=== PATIENT | female | born 1980 ===

== ENCOUNTER 2024-02-19 05:28 | Inpatient (IN) | payer OTHER ==
[2024-02-12 10:27] LABS: PH,URINE 7.5 (5.0-8.0); URINE APPEARANCE Clear; URINE BILIRRUBIN Negative (NEGATIVE); URINE BLOOD Negative; URINE COLOR Yellow; URINE GLUCOSE Negative (NEGATIVE); URINE KETONE Negative (NEGATIVE); URINE LEUKOCYTE Negative; URINE NITRATE Negative; URINE PROTEIN Negative (NEGATIVE); URINE UROBILINOGEN 0.2 E.U./dl
[2024-02-12 10:30] LABS: HEMOGLOBIN 12.8 g/dL (12.0-15.00); MEAN CELL VOLUME 87.2 fL (80.00-100.00); MEAN CORPUSCULAR HEMOGLOBIN 29.4 pg (27.00-32.0); MEAN CORPUSCULAR HGB CONC 33.7 g/dl (32.0-36.0); PLATELET COUNT 262 K/uL (150-450); RED BLOOD COUNT 4.35 M/uL (4.00-6.00); RED CELL DISTRIBUTION WIDTH 14.5 % (11.5-14.5)
[2024-02-12 10:31] LABS: URINE BACTERIA 197.7 uL (0.0-1933); URINE RBC 11.4 uL (0.0-20.8); URINE WBC 3.7 uL (0.0-23.2)
[2024-02-12 11:20] LABS: ALBUMIN 3.9 gm/dL (3.4-5.0); BILIRUBIN TOTAL 0.5 mg/dL (0.3-1.2); CALCIUM 9.1 mg/dL (8.5-10.1); CREATININE SERUM 0.5 mg/dL (0.55-1.02); GFR 133.42; GLOBULINA 3.3 G/DL (2.4-3.5); POTASSIUM 4.12 mEq/L (3.5-5.1); TOTAL PROTEIN 7.2 gm/dL (6.4-8.2)
[2024-02-12 12:02] LABS: INR 0.95; PARTIAL THROMBOPLASTIN TIME 25.1 SECONDS (22.0-34.0); PROTHROMBIN TIME 9.9 SECONDS (9.0-11.5)
[~2024-02-19] VITALS: Ht 213.4 cm; Wt 69.4 kg
[~2024-02-19 05:28] MED LIST: CRESTOR 5MG; PROTONIX40 MG
[2024-02-19] MEDS ORDERED: CEFTRIAXONE SODIUM 2,000 MG VIAL IV ONE (09:45)
[2024-02-19] MEDS ORDERED: BUPIVACAINE HCL 30 ML VIAL IJ ONE (09:45)
[2024-02-19] MEDS ORDERED: POVIDONE-IODINE 118 ML BOTT TOP ONE (09:45)
[2024-02-19] MEDS ORDERED: DIBUCAINE 30 GM TUBE RECTAL ONE (09:45)
[2024-02-19] MEDS ORDERED: HEMOSTATIC MATRIX 1 KIT KIT TOP ONE (09:45)
[2024-02-19] MEDS ORDERED: LIDOCAINE HCL 1%/EPINEPHRINE 20ML VIAL IJ ONE (09:45)
[2024-02-19] MEDS ORDERED: METRONIDAZOLE/SODIUM CHLORIDE 500 MG/100 ML PIGGYBACK IV ONE (09:45)
[2024-02-19] MEDS ORDERED: RINGERS SOLUTION,LACTATED 1,000 ML IV SCH (11:15)
[2024-02-19] MEDS ORDERED: MORPHINE SULFATE 4 MG/ML CARTRIDGE IV PRN (11:15)
[2024-02-19] MEDS ORDERED: ONDANSETRON HCL 2 MG/ML VIAL IV PRN (11:15)
[2024-02-19] MEDS ORDERED: OxyCODONE HCL 5 MG TABLET (ROXICODONE) PO PRN (11:15)
[2024-02-19] MEDS ORDERED: KETOROLAC TROMETHAMINE 30 MG VIAL IV SCH (12:00)
[2024-02-19] MEDS ORDERED: HYOSCYAMINE SULFATE 0.125 MG TAB.SUBL SL SCH (13:00)
[2024-02-19] MEDS ORDERED: ACETAMINOPHEN 500 MG GEL..CAP PO SCH (14:00)
[2024-02-19 15:44] LABS: HEMATOCRIT 37.3 % (36.0-45.00); HEMOGLOBIN 12.3 g/dL (12.0-15.00); MEAN CELL VOLUME 87.8 fL (80.00-100.00); PLATELET COUNT 247 K/uL (150-450); RED BLOOD COUNT 4.25 M/uL (4.00-6.00); RED CELL DISTRIBUTION WIDTH 13.9 % (11.5-14.5)
[2024-02-19 16:57] VITALS: BP 123/60; O2SAT 99
[2024-02-19] MEDS ORDERED: GABAPENTIN 300 MG CAPSULE PO SCH (17:00)
[2024-02-19] MEDS ORDERED: METOCLOPRAMIDE HCL 5 MG/ML VIAL IV SCH (17:00)
[2024-02-19] MEDS ORDERED: METRONIDAZOLE/SODIUM CHLORIDE 100 ML IV SCH (17:00)
[2024-02-19] MEDS ORDERED: CIPROFLOXACIN IN 5 % DEXTROSE 200 MG/100 ML PIGGYBAG IV SCH (21:00)
[2024-02-19] MEDS ORDERED: FAMOTIDINE/PF 20 MG/2 ML VIAL IV PUSH SCH (21:00)
[2024-02-20 00:20] VITALS: BP 93/52; O2SAT 95
[2024-02-20 07:12] LABS: HEMATOCRIT 35.4 % (36.0-45.00); HEMOGLOBIN 11.8 g/dL (12.0-15.00); MEAN CELL VOLUME 88.2 fL (80.00-100.00); MEAN CORPUSCULAR HEMOGLOBIN 29.3 pg (27.00-32.0); MEAN CORPUSCULAR HGB CONC 33.2 g/dl (32.0-36.0); PLATELET COUNT 232 K/uL (150-450); RED BLOOD COUNT 4.01 M/uL (4.00-6.00); RED CELL DISTRIBUTION WIDTH 14.1 % (11.5-14.5)
[2024-02-20 07:39] LABS: CALCIUM 8.1 mg/dL (8.5-10.1); CREATININE SERUM 0.46 mg/dL (0.55-1.02); GFR 146.9; MAGNESIUM 2.1 mg/dL (1.8-2.4); PHOSPHOROUS 2.9 mg/dL (2.5-4.9); POTASSIUM 3.91 mEq/L (3.5-5.1)
[2024-02-20 08:00] VITALS: BP 104/58; O2SAT 100
[2024-02-20] MEDS ORDERED: LACTOBACILLUS ACIDOPHILUS 1 CAP CAP PO SCH (09:00)
[2024-02-20 16:34] VITALS: BP 100/53; O2SAT 98
[2024-02-20] MEDS ORDERED: ENOXAPARIN SODIUM 40 MG/0.4 ML SYRINGE SUBCUTANEO SCH (17:00)
[2024-02-20] MEDS ORDERED: CIPROFLOXACIN IN 5 % DEXTROSE 400 MG/200 ML PIGGYBAG IV SCH (21:00)
[2024-02-21 01:00] VITALS: BP 93/51; O2SAT 97
[2024-02-21 05:08] VITALS: BP 98/52; O2SAT 98
[2024-02-21 08:59] VITALS: BP 145/93; O2SAT 98
[2024-02-21] MEDS ORDERED: levoFLOXacin IN DEXTROSE 5 % 5 MG/ML PIGGYBAG IV SCH (09:00)
[2024-02-21] MEDS ORDERED: ENOXAPARIN SODIUM 40 MG/0.4 ML SYRINGE SUBCUTANEO SCH (09:00)
[2024-02-21] MEDS ORDERED: PHENAZOPYRIDINE HCL 100 MG TABLET PO SCH (13:00)
[2024-02-21] MEDS ORDERED: POLYETHYLENE GLYCOL 3350 17 GM BLIST.PACK PO SCH (17:00)
[2024-02-21 17:04] VITALS: BP 111/59; O2SAT 98
[2024-02-22 10:02] VITALS: BP 146/73; O2SAT 99
[2024-02-22] MEDS ORDERED: MAGNESIUM HYDROXIDE 30 ML BLIST.PACK PO NR (14:00)
[2024-02-22] MEDS ORDERED: CHLORHEXIDINE GLUCONATE 120 ML BOTTLE TOP SCH (17:00)
[2024-02-22] MEDS ORDERED: CHLORHEXIDINE GLUCONATE 240 ML BOTTLE TOP SCH (17:00)
[2024-02-22 17:52] VITALS: BP 109/62; O2SAT 95
[2024-02-23 03:26] VITALS: BP 98/52; O2SAT 97
[2024-02-23] MEDS ORDERED: DIBUCAINE 30 GM TUBE TOP SCH (09:00)
[2024-02-23 10:23] VITALS: BP 121/66; O2SAT 98
[2024-02-23 13:19] LABS: HEMOGLOBIN 13.8 g/dL (12.0-15.00); MEAN CORPUSCULAR HEMOGLOBIN 29.5 pg (27.00-32.0); MEAN CORPUSCULAR HGB CONC 33.6 g/dl (32.0-36.0); PLATELET COUNT 289 K/uL (150-450); RED BLOOD COUNT 4.66 M/uL (4.00-6.00)
[2024-02-23] MEDS ORDERED: OXYCODONE HCL5 MG PO (15:38)
[2024-02-23] MEDS ORDERED: INTESTINEX680 M1 PO (15:59)
[2024-02-23] MEDS ORDERED: AMOX-CLAV 875-1 EACH PO (15:59)
[2024-02-23 17:37] VITALS: BP 121/58; O2SAT 98
== END 2024-02-23 19:37 | disposition home or self-care (01) | DRG 348 ==
LOC: CIR.AMB 05:28 → SURH 14:08 → O/R 14:08 → SURH 14:15
PROVIDERS: ADMIT Surgery; ATTEND Surgery
PROC: 0KQM0ZZ Repair Perineum Muscle, Open Approach (ICD-10-PCS; 2024-02-19)
PROC: 0DUR0JZ Supplement Anal Sphincter with Synthetic Substitute, Open Approach (ICD-10-PCS; principal; 2024-02-19 09:00)
PROC: 0D9R0ZZ Drainage of Anal Sphincter, Open Approach (ICD-10-PCS; 2024-02-22)
DX: K62.81 Anal sphincter tear (healed) (nontraumatic) (old) (principal); L76.32 Postprocedural hematoma of skin and subcutaneous tissue following other procedure; N39.42 Incontinence without sensory awareness; R15.9 Full incontinence of feces